=== PATIENT | female | born 1960 | race Caucasian/White ===

== ENCOUNTER 2022-01-31 13:15 | Emergency (ER) | payer MEDICAID, OTHER ==
[2022-01-31] MEDS ORDERED: Ondansetron 4 MG Tab.DIS PO ONE (13:59)
== END 2022-01-31 14:46 | disposition home or self-care (01) ==
LOC: JP.ED 13:15
DX: K52.9 Noninfective gastroenteritis and colitis, unspecified (principal); E78.00 Pure hypercholesterolemia, unspecified; I10 Essential (primary) hypertension; F17.210 Nicotine dependence, cigarettes, uncomplicated; Z20.822 Contact with and (suspected) exposure to COVID-19
CPT/HCPCS: 36415; 85025; 86618; 87635; 99284; Q0162; U0002

== ENCOUNTER 2022-02-01 19:42 | Emergency (ER) | payer SELFPAY ==
[2022-02-01] MEDS ORDERED: Sodium Chloride 0.9% 10 ML Syringe FLUSH PRN (21:29)
[2022-02-01] MEDS ORDERED: Dextrose 5%-Lactated Ringers 1,000 ML IV SCH (21:30)
[2022-02-01] MEDS ORDERED: Ondansetron 4 MG/2 ML SDV IVPUSH ONE (21:32)
[2022-02-01] MEDS ORDERED: Lidocaine 1% PF 2 ML SDV IV SCH (21:45)
[2022-02-01] MEDS ORDERED: Potassium Chloride 20 MEQ Tab.ER PO ONE (21:46)
[2022-02-01] MEDS ORDERED: Potassium Chloride 20 MEQ in Premix Bag 1 BAG IV SCH (22:00)
[2022-02-01] MEDS ORDERED: Aluminum Hydroxide/Magnesium Hydroxide/Simethicone Susp 30 ML Cup PO SCH (22:30)
[2022-02-02] MEDS ORDERED: Ciprofloxacin 500 MG Tab PO ONE (00:05)
[2022-02-02] MEDS ORDERED: predniSONE 20 MG Tab PO ONE (00:05)
[2022-02-02] MEDS ORDERED: metroNIDAZOLE 250 MG Tab PO ONE (00:06)
== END 2022-02-02 01:07 | disposition home or self-care (01) ==
LOC: JP.ED 19:42
DX: K52.9 Noninfective gastroenteritis and colitis, unspecified (principal); E87.6 Hypokalemia; E78.00 Pure hypercholesterolemia, unspecified; I10 Essential (primary) hypertension; K21.9 Gastro-esophageal reflux disease without esophagitis; F17.210 Nicotine dependence, cigarettes, uncomplicated; Z79.899 Other long term (current) drug therapy
CPT/HCPCS: 36415; 80048; 81001; 83735; 85025; 86140; 96365; 96366; 96375; 99284; A9270; J2405; J3480; J3490; J7121

== ENCOUNTER 2024-03-02 09:51 | Emergency (ER) | payer OTHER ==
[2024-03-02] MEDS: Acetaminophen/HYDROcodone 325-5 MG Tab PO ONE (10:32)
== END 2024-03-02 12:54 | disposition home or self-care (01) ==
LOC: JP.ED 09:51
DX: S82.892A Other fracture of left lower leg, initial encounter for closed fracture (principal); I10 Essential (primary) hypertension; E78.00 Pure hypercholesterolemia, unspecified; K21.9 Gastro-esophageal reflux disease without esophagitis; F17.210 Nicotine dependence, cigarettes, uncomplicated; Z79.899 Other long term (current) drug therapy; W01.0XXA Fall on same level from slipping, tripping and stumbling without subsequent striking against object, initial encounter; Y93.89 Activity, other specified
CPT/HCPCS: 27810; 73610; 73630; 99283; A9270